=== PATIENT | male | born 1985 ===

== ENCOUNTER 2017-07-20 18:19 | Emergency (ER) | payer SELFPAY | END 2017-07-20 19:41 | disposition left against medical advice (07) | LOC: ED 18:19 | DX: M79.601 Pain in right arm (principal); Z53.21 Procedure and treatment not carried out due to patient leaving prior to being seen by health care provider ==

== ENCOUNTER 2019-09-30 17:49 | Emergency (ER) | payer SELFPAY ==
--- NOTE | 2019-09-30 18:03 | Emergency Department Report ---
Chief Complaint: Abdominal Pain Stated Complaint: ABD PAIN/BLOOD IN STOOL Time Seen by Provider: 09/30/19 17:51 - HPI History of Present Illness: Mr. Pimentel is a healthy 34-year-old male without significant past medical history who presents from urgent care via EMS for rectal bleeding. He had bright red blood per rectum seen on tissue. He has mild irritation at the rectal region. He was encouraged by urgent care provider to come to the emergency department per EMS. He denies abdominal pain. He denies any discomfort at this time. He denies chest pain shortness of breath or weakness. He is currently taking ibuprofen for chronic pain in his left lower leg. He has a metal dina in place. He had orthopedic surgery 2014 for fracture. Patient currently does not have a life or limb threatening emergent condition. I informed him that he either has rectal hemorrhoids or anal fissure. I recommended [id number] treatment such as hemorrhoid ointment and stool softener such as Colace. He understands return for abdominal pain lightheadedness or severe amount of bleeding. 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 He requested a return back to work note which I provided. Medical screening exam performed and completed. No further evaluation or intervention required at this time. - Exam Vital Signs: Vital Signs 09/30/19 17:50 Temperature 98.4 F Pulse Rate 69 Respiratory 16 Rate Blood Pressure 124/80 O2 Sat by Pulse 100 Oximetry MSE screening note: Focused history and physical exam performed. Due to findings the following was ordered: ED Disposition for MSE Disposition: Z- MED SCREENING EXAM-LEFT Is pt being admited?: No Does the pt Need Aspirin: No Condition: Stable Instructions: Rectal Bleeding (ED) Referrals: PRUDENCE PAYNE MD [Staff Physician] - 3-5 Days Forms: Work/School Release Form(ED)
[2019-09-30 18:21] VITALS: BP 123/93
== END 2019-09-30 18:22 | disposition left against medical advice (07) ==
LOC: ED 17:49
DX: K62.5 Hemorrhage of anus and rectum (principal); Z98.890 Other specified postprocedural states